=== PATIENT | male | born 1950 | race Caucasian/White ===

== ENCOUNTER 2016-05-27 06:26 | Inpatient (IN) | payer MEDICARE ==
[~2016-05-27 06:26] MED LIST: ASPIRIN325 M3 PO; AUGMENTIN 875-1 EAC2 PO; BACITRACIN28.4 G2 TP; CALMOSEPTINE O3.5 G1 TP; CORTEF10 M1 PO; CORTEF5 M1 PO; FLOMAX0.4 M1 PO; FLUDROCORTISON0.1 M1 PO; IBUPROFEN200 M3 PO; IRON PO; MULTIVITAMINS1 EAC6 PO; NORCO 5-325 TA1 EACH PO; PROAIR HFA8.5 GM INH; SYMBICORT 160-1 PUFF INH; VITAMIN A10000 UNI2 PO
[2016-05-27 07:13] LABS: BASO % 0.1 % (0-2); EOS % 0.1 % (0-7); HCT-HEMATOCRIT 44.7 % (36.0-53.5); HGB-HEMOGLOBIN 15.4 gm/dl (13.5-17.0); IMMATURE GRANULOCYTES ABSOLUTE 0.03 tho/cmm (0-0.03); IMMATURE GRANULOCYTES PERCENT 0.2 % (0-0.3); LYMPH % 4.5 % (20-45); LYMPH ABSOLUTE COUNT 0.7 tho/cmm (0.8-4.5); MCH (MEAN CORPUSCULAR HGB) 30.9 pg (28.0-32.0); MCHC MEAN CORPUSCULAR HGB CONC 34.5 % (32.0-36.0); MCV (MEAN CELL VOLUME) 89.8 fl (82.0-96.0); MEAN PLATELET VOLUME 9.6 cmc (9.4-12.4); MONO % 4.8 % (0-12); MONOCYTE ABSOLUTE COUNT 0.7 tho/cmm (0.0-1.2); NEUTROPHIL ABSOLUTE COUNT 13.7 tho/cmm (1.6-8.0); NEUTROPHIL-AUTOMATED 13.7 tho/cmm (1.6-8.0); NEUTROPHILS % 90.3 % (40-80); PLATELET COUNT 282 tho/cmm (150-450); RED BLOOD COUNT 4.98 mil/cmm (4.40-5.70); RED CELL DISTRIBUTION WIDTH 13.5 % (12.4-16.4); WHITE BLOOD COUNT 15.2 tho/cmm (4.0-10.0)
[2016-05-27 07:21] LABS: PROTHROMBIN TIME 11.8 SECONDS (9.0-13.6)
[2016-05-27 07:36] LABS: ALKALINE PHOSPHATASE 79 U/L (33-138); ALT/SGPT 22 U/L (12-78); ANION GAP 14 mmol/L (0-20); AST/SGOT 24 U/L (10-40); BILIRUBIN,TOTAL 1.8 mg/dl (0.0-1.5); BLOOD UREA NITROGEN 12 mg/dl (6-24); CALCIUM 8.9 mg/dl (8.5-10.5); CARBON DIOXIDE-VENOUS 25 mmol/L (22-32); CHLORIDE 102 mmol/l (96-110); CREATININE 0.93 mg/dl (0.60-1.30); GLUCOSE 127 mg/dL (70-110); LIPASE 52 U/L (73-393); POTASSIUM 4.1 mmol/L (3.7-5.1); SODIUM 137 mmol/L (135-145); eGFR VALUE FOR BLACK >90 mL/Min
[2016-05-27 07:42] LABS: ALB/GLOB RATIO 0.9 (0.8-2.0); ALBUMIN 3.7 g/dl (3.5-5.0)
[2016-05-27 08:14] LABS: C-REACTIVE PROTEIN 0.6 mg/dl (0-0.9)
[2016-05-27 08:22] LABS: URINE APPEARANCE CLEAR; URINE BILIRUBIN NEGATIVE (NEG); URINE BLOOD MODERATE (NEG); URINE COLOR YELLOW; URINE GLUCOSE (UA) NEGATIVE (NEG); URINE KETONE SMALL (NEG); URINE LEUKOCYTE ESTERASE NEGATIVE (NEG); URINE NITRITE NEGATIVE (NEG); URINE PROTEIN NEGATIVE (NEG)
[2016-05-27 08:29] LABS: URINE MUCUS 1+; URINE WBC 0 /[HPF] (0-5)
[2016-05-27] MEDS ORDERED: [UNRECOGNIZED DRUG - OTHER] PO (09:42)
[2016-05-28 06:42] LABS: BASO % 0.1 % (0-2); HCT-HEMATOCRIT 33.3 % (36.0-53.5); IMMATURE GRANULOCYTES ABSOLUTE 0.04 tho/cmm (0-0.03); IMMATURE GRANULOCYTES PERCENT 0.3 % (0-0.3); LYMPH % 4.9 % (20-45); LYMPH ABSOLUTE COUNT 0.7 tho/cmm (0.8-4.5); MCH (MEAN CORPUSCULAR HGB) 30.1 pg (28.0-32.0); MONO % 5.8 % (0-12); MONOCYTE ABSOLUTE COUNT 0.8 tho/cmm (0.0-1.2); NEUTROPHIL ABSOLUTE COUNT 12.8 tho/cmm (1.6-8.0); NEUTROPHIL-AUTOMATED 12.8 tho/cmm (1.6-8.0); NEUTROPHILS % 88.9 % (40-80); PLATELET COUNT 186 tho/cmm (150-450); RED BLOOD COUNT 3.66 mil/cmm (4.40-5.70); RED CELL DISTRIBUTION WIDTH 14.2 % (12.4-16.4); WHITE BLOOD COUNT 14.4 tho/cmm (4.0-10.0)
[2016-05-28 06:56] LABS: ANION GAP 10 mmol/L (0-20); BLOOD UREA NITROGEN 13 mg/dl (6-24); CALCIUM 7.3 mg/dl (8.5-10.5); CARBON DIOXIDE-VENOUS 28 mmol/L (22-32); CHLORIDE 103 mmol/l (96-110); CREATININE 0.95 mg/dl (0.60-1.30); GLUCOSE 136 mg/dL (70-110); POTASSIUM 3.6 mmol/L (3.7-5.1); SODIUM 137 mmol/L (135-145); eGFR VALUE FOR BLACK >90 mL/Min
[2016-05-29 12:23] LABS: BASO % 0.3 % (0-2); EOS % 2.1 % (0-7); EOSINOPHIL ABSOLUTE COUNT 0.2 tho/cmm (0.0-0.7); HCT-HEMATOCRIT 33.8 % (36.0-53.5); HGB-HEMOGLOBIN 11.4 gm/dl (13.5-17.0); IMMATURE GRANULOCYTES ABSOLUTE 0.01 tho/cmm (0-0.03); IMMATURE GRANULOCYTES PERCENT 0.1 % (0-0.3); LYMPH % 17.9 % (20-45); LYMPH ABSOLUTE COUNT 1.4 tho/cmm (0.8-4.5); MCH (MEAN CORPUSCULAR HGB) 30.5 pg (28.0-32.0); MCHC MEAN CORPUSCULAR HGB CONC 33.7 % (32.0-36.0); MCV (MEAN CELL VOLUME) 90.4 fl (82.0-96.0); MEAN PLATELET VOLUME 9.7 cmc (9.4-12.4); MONO % 7.4 % (0-12); MONOCYTE ABSOLUTE COUNT 0.6 tho/cmm (0.0-1.2); NEUTROPHIL ABSOLUTE COUNT 5.5 tho/cmm (1.6-8.0); NEUTROPHIL-AUTOMATED 5.5 tho/cmm (1.6-8.0); NEUTROPHILS % 72.2 % (40-80); PLATELET COUNT 197 tho/cmm (150-450); RED BLOOD COUNT 3.74 mil/cmm (4.40-5.70); RED CELL DISTRIBUTION WIDTH 14.1 % (12.4-16.4); WHITE BLOOD COUNT 7.7 tho/cmm (4.0-10.0)
[2016-05-29 12:38] LABS: ANION GAP 9 mmol/L (0-20); BLOOD UREA NITROGEN 9 mg/dl (6-24); CALCIUM 7.7 mg/dl (8.5-10.5); CARBON DIOXIDE-VENOUS 30 mmol/L (22-32); CHLORIDE 105 mmol/l (96-110); GLUCOSE 129 mg/dL (70-110); POTASSIUM 3.5 mmol/L (3.7-5.1); SODIUM 140 mmol/L (135-145); eGFR VALUE FOR BLACK >90 mL/Min
--- NOTE | 2016-05-29 20:47 | NUR ---
VN/LEADER ROUNDING-PATIENT LAYING COMFORTABLY IN BED STATING HIS PAIN IS UNDER CONTROL WITH THE PAIN MEDICATIONS AND USING A WARM PACK AT THIS TIME. PATIENT STATES HE RARELY HAS TO USE THE CALL LIGHT AND WHEN SO IT IS ANSWERED TIMELY. PATIENT STATES EVERYONE HAS BEEN WONDERFUL AND IS TAKING CARE OF HIM WELL. WE DID DISCUSS THE POSSIBILITY OF HIM GETTING TO GO HOME TOMORROW-HE IS TOLERATING FULL LIQUIDS AND STARTING TO HAVE SOME REGULAR BOWELS FROM HIS OSTOMY. NO FURTHER QUESTIONS OR CONCERNS AT THIS TIME.
[2016-05-30 04:46] LABS: HGB-HEMOGLOBIN 11.2 gm/dl (13.5-17.0); PLATELET COUNT 220 tho/cmm (150-450)
--- NOTE | 2016-05-30 17:19 | NUR ---
VIRTUAL CARE NOTE: PT RESTING ON BED, STATES DOING GOOD, PLAN OF CARE AND PLAN OF DISCHARGE DISCUSSED WITH PT, QUESTIONS ANSWERED. PT FEELS COMFORTABLE WITH HIS OWN OSTOMY CARE NO NEEDS FOR C AT THIS CARE. CARE INFORMATION REINFORCED PT DENIES ANY QUESTIONS OR CONCERNS.
== END 2016-05-31 16:29 | DRG 354 ==
LOC: EDMED 06:26 → 5WE 11:45 → PACU 17:26 → PCUB 19:04 → 5WD 05-29 16:29
PROVIDERS: Emergency Medicine; Family Medicine; Nurse Practitioner; Physician Assistant; ADMIT Internal Medicine
PROC: 0WQF4ZZ Repair Abdominal Wall, Percutaneous Endoscopic Approach (ICD-10-PCS; principal; 2016-05-27)
DX: K43.3 Parastomal hernia with obstruction, without gangrene (principal); K94.19 Other complications of enterostomy; E87.2 Acidosis; Y84.8 Other medical procedures as the cause of abnormal reaction of the patient, or of later complication, without mention of misadventure at the time of the procedure; F14.21 Cocaine dependence, in remission; D72.829 Elevated white blood cell count, unspecified; I95.81 Postprocedural hypotension; Z87.891 Personal history of nicotine dependence
CPT/HCPCS: C9113; J0131; J1335; J1650; J1885; J2270; J2405; J7030; J7040; J7121; P9045; Q9967